=== PATIENT | male | born 1955 | race Caucasian/White ===

== ENCOUNTER → 2020-10-23 | Outpatient (CLI) | payer MEDICARE, OTHER ==
[~2020-10-23] MED LIST: ADULT LOW DOSE81 MG PO; AMITRIPTYLINE H25 MG PO; ANDROGEL75 GM TOP; ATORVASTATIN CA20 MG PO; ATORVASTATIN CA40 MG PO; BIOTIN-D0.5 GM PO; BIOTIN5 MG PO; CLOPIDOGREL75 MG PO; COZAAR 25MG TAB25 MG PO; CYCLOBENZAPRINE10 MG PO; DOXAZOSIN MESYLA4 MG PO; EQ FIBER SUPPLEM2 GM PO; EQL FISH OIL 11 EACH PO; FIBER500 MG PO; FINASTERIDE5 MG PO; FISH OIL 1,2001 EAC1 PO; HYDROCHLOROTHIA25 MG PO; HYDROCODON-ACE1 EAC2 PO; KENALOG OINT 0.80 GM TOP; LAMISIL TAB 25250 MG PO; METFORMIN HCL1000 MG PO; NITROSTAT0.4 MG SL; PLAVIX75 MG PO; PREDNISONE5 MG PO; PREVACID15 MG PO; PREVACID30 MG PO; RANOLAZINE ER500 MG PO; TENORMIN 25 MG25 MG PO; TESTOSTERONE75 G1 TD; VERAPAMIL ER240 MG PO; ZOCOR 40 MG TAB40 MG PO
== END ==
LOC: KOH-I 12:41
DX: Z01.818 Encounter for other preprocedural examination (principal)
CPT/HCPCS: 93880

== ENCOUNTER → 2020-11-23 | Outpatient (CLI) | payer MEDICARE, SELFPAY | LOC: ECHO 11:42 → NM 13:00 | DX: Z01.810 Encounter for preprocedural cardiovascular examination (principal); R06.02 Shortness of breath; I08.0 Rheumatic disorders of both mitral and aortic valves; I31.3 Pericardial effusion (noninflammatory); R94.39 Abnormal result of other cardiovascular function study | CPT/HCPCS: ECHO; 78452; 93306; A9502; J2785 ==

== ENCOUNTER → 2020-12-06 | Outpatient (CLI) | payer MEDICARE, SELFPAY ==
[2020-12-06 11:03] LABS: HEMOGLOBIN 16.8 gm/dl (14.0-17.5); RED BLOOD COUNT 5.09 M/UL (4.20-5.50); WHITE BLOOD COUNT 14.1 K/UL (4.5-11.0)
[2020-12-06 11:51] LABS: BUN/CREATININE RATIO 37 (0-10)
== END ==
LOC: LAB 09:39
PROVIDERS: Internal Medicine Interventional Cardiology
DX: E78.5 Hyperlipidemia, unspecified (principal); R06.02 Shortness of breath; I10 Essential (primary) hypertension; I20.8 Other forms of angina pectoris; R94.31 Abnormal electrocardiogram [ECG] [EKG]
CPT/HCPCS: 36415; 80048; 85025; 85610; 85730; 93005

== ENCOUNTER 2020-12-10 09:12 | Outpatient (CLI) | payer MEDICARE, SELFPAY ==
[~2020-12-10] VITALS: Ht 172.7 cm; Wt 104.3 kg
[2020-12-10] MEDS ORDERED: AMITRIPTYLINE H25 MG PO (10:01)
[2020-12-10] MEDS ORDERED: CYCLOBENZAPRINE10 MG PO (10:01)
[2020-12-10] MEDS ORDERED: METFORMIN HCL1000 MG PO (10:03)
[2020-12-10] MEDS ORDERED: HYDROCODON-ACE1 EAC2 PO (10:03)
[2020-12-10] MEDS ORDERED: RANOLAZINE ER500 MG PO (10:03)
[2020-12-10] MEDS ORDERED: ZOCOR 40 MG TAB40 MG PO (10:04)
[2020-12-10] MEDS ORDERED: VERAPAMIL ER240 MG PO (10:04)
[2020-12-10] MEDS ORDERED: TESTOSTERONE75 G1 TD (10:05)
[2020-12-10] MEDS ORDERED: BIOTIN-D0.5 GM PO (10:07)
[2020-12-10] MEDS ORDERED: EQL FISH OIL 11 EACH PO (10:08)
[2020-12-10] MEDS ORDERED: EQ FIBER SUPPLEM2 GM PO (10:08)
[2020-12-10] MEDS ORDERED: PREVACID30 MG PO (10:09)
[2020-12-10 19:12] LABS: HEMOGLOBIN 16.3 gm/dl (14.0-17.5); RED BLOOD COUNT 4.96 M/UL (4.20-5.50)
[2020-12-10 19:24] LABS: BUN/CREATININE RATIO 21 (0-10)
[2020-12-11 02:47] LABS: HEMOGLOBIN 15.4 gm/dl (14.0-17.5); RED BLOOD COUNT 4.78 M/UL (4.20-5.50); WHITE BLOOD COUNT 13.2 K/UL (4.5-11.0)
[2020-12-11] MEDS ORDERED: NITROSTAT0.4 MG SL (09:26)
[2020-12-11] MEDS ORDERED: ATORVASTATIN CA20 MG PO (09:26)
[2020-12-11] MEDS ORDERED: CLOPIDOGREL75 MG PO (09:26)
[2021-01-22] MEDS ORDERED: LAMISIL TAB 25250 MG PO (12:27)
== END 2020-12-11 10:43 | disposition home or self-care (01) ==
LOC: CATH 09:12 → PROG CARE 13:49 → CATH 12-11 10:43
PROVIDERS: Internal Medicine Interventional Cardiology
DX: R94.39 Abnormal result of other cardiovascular function study (principal); I25.118 Atherosclerotic heart disease of native coronary artery with other forms of angina pectoris; I10 Essential (primary) hypertension; E78.5 Hyperlipidemia, unspecified; E11.51 Type 2 diabetes mellitus with diabetic peripheral angiopathy without gangrene; J45.909 Unspecified asthma, uncomplicated; E66.9 Obesity, unspecified; G47.33 Obstructive sleep apnea (adult) (pediatric); F17.290 Nicotine dependence, other tobacco product, uncomplicated; Z68.34 Body mass index [BMI] 34.0-34.9, adult; Z98.62 Peripheral vascular angioplasty status; Z79.82 Long term (current) use of aspirin; Z79.84 Long term (current) use of oral hypoglycemic drugs; Z79.899 Other long term (current) drug therapy; Z82.49 Family history of ischemic heart disease and other diseases of the circulatory system
CPT/HCPCS: 36415; 80048; 82550; 82553; 82962; 84484; 85027; 85347; 93005; 99152; 99153; C1725; C1769; C1874; C1887; C1894; C9600; C9601; J0461; J1644; J2250; J3010; J7030; Q9967

== ENCOUNTER → 2020-12-18 | Outpatient (CLI) | payer MEDICARE, SELFPAY ==
[2020-12-18 11:21] LABS: HEMOGLOBIN 16.7 gm/dl (14.0-17.5); RED BLOOD COUNT 5.12 M/UL (4.20-5.50)
== END ==
LOC: LAB 10:25
PROVIDERS: Urology
DX: E29.1 Testicular hypofunction (principal); N42.9 Disorder of prostate, unspecified
CPT/HCPCS: 36415; 80076; 85027

== ENCOUNTER 2021-01-24 08:55 | Observation (INO) | payer MEDICARE, OTHER ==
[~2021-01-24] VITALS: Ht 172.7 cm; Wt 104.3 kg
[~2021-01-24 08:55] MED LIST changes: -ADULT LOW DOSE81 MG PO; -ANDROGEL75 GM TOP; -ATORVASTATIN CA40 MG PO; -BIOTIN5 MG PO; -COZAAR 25MG TAB25 MG PO; -DOXAZOSIN MESYLA4 MG PO; -FIBER500 MG PO; -FINASTERIDE5 MG PO; -FISH OIL 1,2001 EAC1 PO; -HYDROCHLOROTHIA25 MG PO; -KENALOG OINT 0.80 GM TOP; -PLAVIX75 MG PO; -PREDNISONE5 MG PO; -PREVACID15 MG PO; -TENORMIN 25 MG25 MG PO
[2021-01-24 09:13] LABS: HEMOGLOBIN 16.2 gm/dl (14.0-17.5); RED BLOOD COUNT 4.96 M/UL (4.20-5.50); WHITE BLOOD COUNT 15.4 K/UL (4.5-11.0)
[2021-01-24 09:46] LABS: BUN/CREATININE RATIO 24 (0-10)
[2021-01-24] MEDS ORDERED: COZAAR 25MG TAB25 MG PO (10:01)
[2021-01-24] MEDS ORDERED: FINASTERIDE5 MG PO (10:02)
[2021-01-24] MEDS ORDERED: DOXAZOSIN MESYLA4 MG PO (10:02)
[2021-01-24] MEDS ORDERED: HYDROCHLOROTHIA25 MG PO (10:02)
[2021-01-24] MEDS ORDERED: TENORMIN 25 MG25 MG PO (10:04)
[2021-01-24] MEDS ORDERED: PREDNISONE5 MG PO (10:06)
[2021-01-24] MEDS ORDERED: ADULT LOW DOSE81 MG PO (10:07)
[2021-01-24] MEDS ORDERED: ATORVASTATIN CA40 MG PO (12:13)
[2021-01-24] MEDS ORDERED: PLAVIX75 MG PO (12:21)
[2021-01-24] MEDS ORDERED: PREVACID15 MG PO (12:23)
[2021-01-24] MEDS ORDERED: BIOTIN5 MG PO (12:24)
[2021-01-24] MEDS ORDERED: FIBER500 MG PO (12:26)
[2021-01-24] MEDS ORDERED: FISH OIL 1,2001 EAC1 PO (12:26)
[2021-01-24] MEDS ORDERED: KENALOG OINT 0.80 GM TOP (12:27)
[2021-01-24] MEDS ORDERED: ANDROGEL75 GM TOP (12:30)
[2021-01-25 05:22] LABS: HEMOGLOBIN 14.9 gm/dl (14.0-17.5); RED BLOOD COUNT 4.86 M/UL (4.20-5.50); WHITE BLOOD COUNT 16.1 K/UL (4.5-11.0)
== END 2021-01-25 16:50 | disposition home or self-care (01) ==
LOC: ER1 08:55 → CDU 10:30 → MED SURG 4 18:00
PROVIDERS: Emergency Medicine; Physician Assistant Medical; ADMIT Internal Medicine
DX: I25.119 Atherosclerotic heart disease of native coronary artery with unspecified angina pectoris (principal); Z98.61 Coronary angioplasty status; G44.009 Cluster headache syndrome, unspecified, not intractable; F17.210 Nicotine dependence, cigarettes, uncomplicated; J44.9 Chronic obstructive pulmonary disease, unspecified; E11.51 Type 2 diabetes mellitus with diabetic peripheral angiopathy without gangrene; K21.9 Gastro-esophageal reflux disease without esophagitis; I10 Essential (primary) hypertension; I73.9 Peripheral vascular disease, unspecified; E78.5 Hyperlipidemia, unspecified; Z98.890 Other specified postprocedural states; Z79.899 Other long term (current) drug therapy; Z20.822 Contact with and (suspected) exposure to COVID-19; Z82.49 Family history of ischemic heart disease and other diseases of the circulatory system; Z79.84 Long term (current) use of oral hypoglycemic drugs
CPT/HCPCS: 36415; 70450; 71045; 80048; 80053; 82550; 82553; 82962; 83735; 83874; 83880; 84484; 85025; 85027; 93005; 99285; G0378; U0002

== ENCOUNTER → 2021-02-28 | Outpatient (CLI) | payer MEDICARE ==
[~2021-02-28] MED LIST changes: +ADULT LOW DOSE81 MG PO; +ANDROGEL75 GM TOP; +ATORVASTATIN CA40 MG PO; +BIOTIN5 MG PO; +COZAAR 25MG TAB25 MG PO; +DOXAZOSIN MESYLA4 MG PO; +FIBER500 MG PO; +FINASTERIDE5 MG PO; +FISH OIL 1,2001 EAC1 PO; +HYDROCHLOROTHIA25 MG PO; +KENALOG OINT 0.80 GM TOP; +PLAVIX75 MG PO; +PREDNISONE5 MG PO; +PREVACID15 MG PO; +TENORMIN 25 MG25 MG PO
== END ==
LOC: LAB 14:50
PROVIDERS: Internal Medicine Nephrology
DX: N18.30 Chronic kidney disease, stage 3 unspecified (principal)
CPT/HCPCS: 36415; 80053; 82570; 84156

== ENCOUNTER → 2021-02-28 | Outpatient (CLI) | payer MEDICARE | LOC: HEART 5 13:59 | DX: Z01.810 Encounter for preprocedural cardiovascular examination (principal); R06.02 Shortness of breath; I08.3 Combined rheumatic disorders of mitral, aortic and tricuspid valves; I27.20 Pulmonary hypertension, unspecified | CPT/HCPCS: 93306 ==

== ENCOUNTER → 2021-03-05 | Outpatient (CLI) | payer MEDICARE ==
[2021-03-05 12:02] LABS: HEMOGLOBIN 14.8 gm/dl (14.0-17.5); RED BLOOD COUNT 4.56 M/UL (4.20-5.50); WHITE BLOOD COUNT 12.1 K/UL (4.5-11.0)
== END ==
LOC: LAB 10:12
PROVIDERS: Dermatology Procedural Dermatology
DX: B35.1 Tinea unguium (principal); I87.2 Venous insufficiency (chronic) (peripheral); B35.3 Tinea pedis; B35.4 Tinea corporis; L30.4 Erythema intertrigo; Z09 Encounter for follow-up examination after completed treatment for conditions other than malignant neoplasm; Z87.2 Personal history of diseases of the skin and subcutaneous tissue
CPT/HCPCS: 36415; 80053; 85025

== ENCOUNTER 2021-03-11 14:36 | Emergency (ER) | payer MEDICARE ==
[2021-03-11 15:11] LABS: RED BLOOD COUNT 4.65 M/UL (4.20-5.50); WHITE BLOOD COUNT 18.9 K/UL (4.5-11.0)
[2021-03-11 15:12] LABS: BORDETELLA PARAPERTUSSIS Not Detected (Not Detectd); BORDETELLA PERTUSSIS Not Detected (Not Detectd); CHLAMYDIA PNEUMONIAE Not Detected (Not Detectd); CORONAVIRUS HKU1 Not Detected (Not Detectd); CORONAVIRUS NL63 Not Detected (Not Detectd); CORONAVIRUS OC43 Not Detected (Not Detectd); CORONOAVIRUS 229E Not Detected (Not Detectd); HUMAN METAPNEUMOVIRUS Not Detected (Not Detectd); HUMAN RHINOVIRUS/ENTEROVIRUS Not Detected (Not Detectd); INFLUENZA A Not Detected (Not Detectd); INFLUENZA B Not Detected (Not Detectd); MYCOPLASMA PNEUMONIAE Not Detected (Not Detectd); PARAINFLUENZA VIRUS 1 Not Detected (Not Detectd); PARAINFLUENZA VIRUS 2 Not Detected (Not Detectd); PARAINFLUENZA VIRUS 3 Not Detected (Not Detectd); PARAINFLUENZA VIRUS 4 Not Detected (Not Detectd); RESPIRATORY SYNCYTIAL VIRUS Not Detected (Not Detectd)
[2021-03-11 16:40] LABS: SARS-CoV-2 NOT DETECTED (Not Detectd)
== END 2021-03-11 16:07 | disposition expired ==
LOC: ER1 14:36
PROVIDERS: Family Medicine
DX: I46.9 Cardiac arrest, cause unspecified (principal); R00.1 Bradycardia, unspecified; Z20.822 Contact with and (suspected) exposure to COVID-19
CPT/HCPCS: 31500; 36556; 36600; 36620; 71045; 80053; 82550; 82553; 82803; 83735; 83874; 84100; 84439; 84443; 84484; 85025; 87633; 93005; 94002; 99291; J0171; J0330; J0461; J1265